=== PATIENT | male | born 2000 | race Caucasian/White ===

== ENCOUNTER 2020-10-25 11:32 | Outpatient (CLI) | payer OTHER ==
[~2020-10-25 11:32] MED LIST: Magnevist 469MG/ML 20 ML VIAL ONE
== END 2020-10-25 11:33 | disposition home or self-care (01) ==
LOC: MRI 11:32
PROVIDERS: ATTEND Nurse Practitioner Acute Care
DX: R56.9 Unspecified convulsions (principal)
CPT/HCPCS: 70553; 95816; A9579